=== PATIENT | male | born 1985 | race African-American/Black ===

== ENCOUNTER 2020-08-28 09:36 | Emergency (ER) | payer MEDICAID ==
[~2020-08-28] VITALS: Ht 175.3 cm; Wt 165.9 kg
[2020-08-28 09:42] VITALS: Ht 175.3 cm; Wt 165.9 kg
[2020-08-28] MEDS ORDERED: TRAZODONE HCL150 MG PO (09:43)
[2020-08-28] MEDS ORDERED: ABILIFY10 MG PO (09:43)
[2020-08-28 10:05] LABS: BILIRUBIN NEGATIVE (NEGATIVE); KETONE NEGATIVE (NEGATIVE); NITRITE NEGATIVE (NEGATIVE); UROBILINOGEN NORMAL mg/dL (< 2)
[2020-08-28 10:06] LABS: BACTERIA FEW HPF (NONE SEEN)
[2020-08-28 10:09] LABS: UDS - AMPHET NEGATIVE QUAL (NEGATIVE); UDS - BARB NEGATIVE QUAL (NEGATIVE); UDS - BENZO NEGATIVE QUAL (NEGATIVE); UDS - COCAINE NEGATIVE QUAL (NEGATIVE); UDS - OPIATE NEGATIVE QUAL (NEGATIVE); UDS - PCP NEGATIVE QUAL (NEGATIVE); UDS - THC NEGATIVE QUAL (NEGATIVE)
[2020-08-28 10:29] LABS: BASOPHILS 0.1 % (0-2); EOSINOPHILS 1.7 % (0-7); HEMATOCRIT 45.2 % (42.0-54.0); IMMATURE GRANULOCYTES 0.2 % (0-5); MCH 26.1 pg (26.0-34.0); MCV 84.3 fL (80.0-100.0); MEAN PLATELET VOLUME 10.8 fL (7.4-10.4); PLATELET COUNT 237 10x3/uL (130-400); RBC 5.36 10x6/uL (4.20-6.10); RDW 16.8 % (11.5-14.5); WBC 13.3 10x3/uL (4.8-10.8)
[2020-08-28 10:36] LABS: CALC OSMOLALITY 278 mosm/kg (275-300); CALCIUM 8.9 mg/dL (8.5-10.1); CARBON DIOXIDE 31.8 mmol/L (21.0-32.0); CHLORIDE - SERUM 103 mmol/L (98-107); GLUCOSE 142 mg/dL (74-106); POTASSIUM - SERUM 3.6 mmol/L (3.5-5.1); SODIUM 138 mmol/L (136-145); UREA NITROGEN 16 mg/dL (7-18); eGFR NON AFRICAN AMERICAN 90 mL/min (90-120)
[2020-08-28 10:42] LABS: ALBUMIN 3.3 g/dL (3.4-5.0); ALKALINE PHOSPHATASE 67 U/L (30-120); ALT (SGPT) 26 U/L (10-68); PROTEIN - SERUM 7.4 g/dL (6.4-8.2)
[2020-08-28] MEDS ORDERED: KEFLEX500 MG PO (10:50)
[2020-08-29 06:48] VITALS: BP 152/89
== END 2020-08-29 06:49 ==
LOC: D.ER 09:36
PROVIDERS: Emergency Medicine
DX: R45.850 Homicidal ideations (principal); I10 Essential (primary) hypertension; D72.829 Elevated white blood cell count, unspecified; N39.0 Urinary tract infection, site not specified; F20.9 Schizophrenia, unspecified; Z72.0 Tobacco use; R73.9 Hyperglycemia, unspecified